=== PATIENT | male | born 1960 | race Caucasian/White ===

== ENCOUNTER 2020-09-03 08:09 | Day surgery (SDC) | payer OTHER ==
[~2020-09-03] VITALS: Ht 185.4 cm; Wt 95.3 kg
[~2020-09-03 08:09] MED LIST: ASPI325T6 PO; LIPITOR 40MG TA40 MG PO; LOPRESSOR 225 MG/TAB PO; NITROSTAT0.4 MG/TAB SL; NO HOME MEDICATIONS; PLAVIX 75MG TAB75 MG PO; TOPROL XL 25MG25 MG PO; ZESTRIL2.5 MG PO
[2020-09-03 08:39] VITALS: BP 130/79; PULSE 108; TEMP 97
[2020-09-03] MEDS ORDERED: PRINIVIL10 MG PO (08:49)
--- NOTE | 2020-09-03 08:53 | NUR ---
TO [facility] AT 0815- CALL LIGHT IN REACH
[2020-09-03 10:15] VITALS: BP 108/75; PULSE 91
[2020-09-03 10:30] VITALS: BP 106/82; PULSE 90
[2020-09-03 10:45] VITALS: BP 114/86; PULSE 88
--- NOTE | 2020-09-03 14:14 | NUR ---
PT ALERT AND ORIENTATED. DENIES PAIN, DISCOMFORT OR NAUSEA. LUNGS CLEAR, HRR, BOWEL SOUNDS AUDIBLE. PT REQUESTS WATER AND VANILLA PUDDING AND TOLERATES WELL. WILL CONTINUE TO MONITOR PROGRESS.
--- NOTE | 2020-09-03 14:19 | NUR ---
PT TOLERATING FOOD AND FLUIDS WITHOUT DIFFICULTY. IV DC'D. PT TOLERATED WELL. DENIES NAUSEA OR VOMITING. VSS. WILL MONITOR.
--- NOTE | 2020-09-03 14:21 | NUR ---
DIMISSAL INSTRUCTIONS GIVEN TO PT, PT VOICES UNDERSTANDING. DENIES QUESTIONS. DENIES PAIN, NAUSEA, VOMITING OR DISCOMFORT. PT DISCHARGED THRIUGH THE PT ENTRANCE TO FAMILY CAR, PT SISTER, KITA DRIVING.
== END 2020-09-03 10:50 | disposition home or self-care (01) ==
LOC: SDCO 08:09
DX: K62.1 Rectal polyp (principal); I25.2 Old myocardial infarction; K62.89 Other specified diseases of anus and rectum; I10 Essential (primary) hypertension; M19.90 Unspecified osteoarthritis, unspecified site; I25.10 Atherosclerotic heart disease of native coronary artery without angina pectoris; E78.00 Pure hypercholesterolemia, unspecified; E78.5 Hyperlipidemia, unspecified; K57.32 Diverticulitis of large intestine without perforation or abscess without bleeding; K92.1 Melena; Z88.5 Allergy status to narcotic agent; Z88.8 Allergy status to other drugs, medicaments and biological substances; Z79.82 Long term (current) use of aspirin; Z86.12 Personal history of poliomyelitis; Z87.891 Personal history of nicotine dependence
CPT/HCPCS: J2704; J7120

== ENCOUNTER → 2020-12-07 | Outpatient (CLI) | payer OTHER ==
[~2020-12-07] MED LIST changes: +ALDACTONE 25MG25 M1 PO; +ASPIRIN 81M81 MG/TA2 PO; +BACTRIM DS 8001 TAB PO; +CEPHALEXIN500 M1 PO; +DEMADEX 20MG20 M1 PO; +DOBUTAMINE; +ELIQUIS 5MG PO; +K-TAB10 PO; +KLOR-CON M2020 MEQ PO; +LASIX 20MG TABL20 MG PO; +LEXAPRO 10MG10 MG PO; +LIALDA 1.2 GM1.2 GM PO; +MAG-OX 400400 MG/TAB PO; +NATURE'S BLEND100 M2 PO; +PERCOCET 325 MG1 TA2 PO; +PREDNISONE10 MG PO; +PRINIVIL10 MG PO; +PROAMATINE 5MG T5 MG PO
== END ==
LOC: COL.RAD 09:27
DX: K57.30 Diverticulosis of large intestine without perforation or abscess without bleeding (principal)
CPT/HCPCS: Q9967

== ENCOUNTER 2020-12-28 02:13 | Inpatient (IN) | payer OTHER ==
[~2020-12-28] VITALS: Ht 185.4 cm; Wt 87.4 kg
[~2020-12-28 02:13] MED LIST changes: -ALDACTONE 25MG25 M1 PO; -ASPIRIN 81M81 MG/TA2 PO; -BACTRIM DS 8001 TAB PO; -CEPHALEXIN500 M1 PO; -DEMADEX 20MG20 M1 PO; -DOBUTAMINE; -ELIQUIS 5MG PO; -K-TAB10 PO; -KLOR-CON M2020 MEQ PO; -LASIX 20MG TABL20 MG PO; -LEXAPRO 10MG10 MG PO; -LIALDA 1.2 GM1.2 GM PO; -MAG-OX 400400 MG/TAB PO; -NATURE'S BLEND100 M2 PO; -PERCOCET 325 MG1 TA2 PO; -PREDNISONE10 MG PO; -PROAMATINE 5MG T5 MG PO
[2020-12-28] MEDS ORDERED: ASPIRIN 81M81 MG/TA2 PO (02:29)
[2020-12-28 02:49] LABS: BASO # 0.1 (0.0-0.2); BASO % 0.6 % (0.0-2.0); EOS # 0.7 (0.0-0.7); EOS % 4.1 % (0-4.0); GRAN # 13.5 (1.4-6.5); HEMATOCRIT 42.4 % (42.0-52.0); HEMOGLOBIN 14.2 g/dl (13.5-18.0); LYMPH # 1.8 (1.2-3.4); LYMPH % 10.2 % (20.0-51.0); MEAN CELL VOLUME 91 fl (80.0-100.0); MEAN CORPUSCULAR HEMOGLOBIN 31 pg (27.0-31.0); MEAN CORPUSCULAR HGB CONC 34 g/dl (33.0-37.0); MEAN PLATELET VOLUME 12.1 fl (7.4-10.4); MONO % 5.6 % (1.7-9.3); PLATELET COUNT 233 K/mm3 (130-400); RED BLOOD COUNT 4.66 M/mm3 (4.20-5.60); REDCELL DISTRIBUTION WIDTH-CV 12.8 % (11.5-14.5)
[2020-12-28 03:06] LABS: ALANINE AMINOTRANSFERASE 33 U/L (4-49); ALKALINE PHOSPHATASE 102 U/L (50-136); ANION GAP 9 mmol/L (7-16); AST,SGOT 25 U/L (15-37); BILIRUBIN,TOTAL 0.6 mg/dL (0.0-1.0); BLOOD UREA NITROGEN 18 mg/dL (9-20); C-REACTIVE PROTEIN < 0.5 mg/dL (0.0-0.9); CALCIUM 9.4 mg/dL (8.4-10.2); CARBON DIOXIDE 20 mmol/L (22-30); CHLORIDE 108 mmol/L (98-107); CREATININE, serum 0.83 (0.66-1.25); GLUCOSE 97 mg/dL (74-106); POTASSIUM 4.2 mmol/L (3.4-5.0); SODIUM 136 mmol/L (137-145); TOTAL PROTEIN 6.7 gm/dL (6.4-8.2)
[2020-12-28 03:07] LABS: INR 1.3 (0.8-3.0); PROTHROMBIN TIME 13.9 SECONDS (9.7-12.8)
[2020-12-28 03:23] LABS: TROPONIN-I 0.071 ng/mL (0.000-0.035)
[2020-12-28 03:56] LABS: COLLECTION METHOD CLEAN CATCH
[2020-12-28 04:02] LABS: PH 5 (5-8); SQUAMOUS EPITHELIAL 0-2 /hpf; URINE APPEARANCE Clear; URINE BACTERIA None Seen /hpf; URINE BILIRUBIN Negative (NEGATIVE); URINE BLOOD Negative (NEGATIVE); URINE COLOR Straw; URINE GLUCOSE Negative (NEGATIVE); URINE KETONE Negative (NEGATIVE); URINE LEUKOCYTE ESTERASE Negative (NEGATIVE); URINE NITRATE Negative (NEGATIVE); URINE PROTEIN(semi-quant) Negative (NEGATIVE); URINE RBC None Seen /hpf; URINE UROBILINOGEN Negative (NEGATIVE)
--- NOTE | 2020-12-28 07:59 | NUR ---
Radiology in for echo
[2020-12-28 08:00] VITALS: BP 107/66; PULSE 84; TEMP 97.5
--- NOTE | 2020-12-28 08:10 | NUR ---
Dr. Mata in to see patient.
--- NOTE | 2020-12-28 08:45 | NUR ---
Notified Dr. Mata about repeat tropoinin
--- NOTE | 2020-12-28 09:51 | NUR ---
Initial visit; Patient thanked [employer] P[employer] Operator for looking in on him and keeping him in [employer] Operator's prayers.
--- NOTE | 2020-12-28 09:54 | NUR ---
DANIAL met with the patient and his , Myesha (ph#[phone]), to discuss discharge plan. The patient lives in [place] with his and two children. He reports independence with ADLs and does not have any DME. The patient's PCP is Dr. Grisel Raymond and he receives his medications from [facility]. The patient does not have a DPOA-HC, but he was interested in obtaining a form. DANIAL provided. The patient plans to return home with his family upon discharge. No additional needs at this time. *Discharge plan: home with family*
[2020-12-28 13:07] VITALS: BP 91/65; PULSE 78; TEMP 97.7
[2020-12-28 16:30] VITALS: BP 99/69; PULSE 86; TEMP 98.2
--- NOTE | 2020-12-28 18:22 | NUR ---
Patient doing well throughout the day, spouse at bedside throughout the day. Denies pain or further needs at this time. Patient states that he would like to shower later this afternoon and will notify staff when he is ready to shower. Patient aware that he is NPO after midnight for procedure in AM. Denies further needs at this time. Will report off to night time babysitter.
--- NOTE | 2020-12-28 19:23 | NUR ---
Bedside shift report received from Marilyn. Patient currently awake in bed, requesting to have a shower tonight. No complaints of chest pain or discomfort at this time. Patient will call when ready to shower.
[2020-12-28 19:37] VITALS: BP 115/67; PULSE 84; TEMP 98
--- NOTE | 2020-12-28 20:00 | NUR ---
Assessment complete. Patient is alert and oriented with no complaints of pain. No edema is present. HR is irregular with normal rate; Lung sounds have fine crackles in bases and patient shows no signs of increased work of breathing. Bedtime lipitor order is restarted, per TARAS Mckeon approval. Patient states he no longer wishes to shower tonight. Additional comfort measures provided. Call light in reach.
[2020-12-28 23:37] VITALS: BP 112/68; PULSE 82; TEMP 97.8
[2020-12-29] VITALS (14 sets, daily range): BP systolic 88–112; BP diastolic 55–75; PULSE 42–89; TEMP 97.5–98
[2020-12-29 06:33] LABS: BASO # 0.1 (0.0-0.2); BASO % 0.7 % (0.0-2.0); EOS # 0.9 (0.0-0.7); EOS % 7.3 % (0-4.0); GRAN # 8.7 (1.4-6.5); GRAN % 67.2 % (42.2-75.2); HEMATOCRIT 45.7 % (42.0-52.0); HEMOGLOBIN 15.2 g/dl (13.5-18.0); LYMPH # 2.1 (1.2-3.4); MEAN CELL VOLUME 92 fl (80.0-100.0); MEAN CORPUSCULAR HEMOGLOBIN 31 pg (27.0-31.0); MEAN CORPUSCULAR HGB CONC 33 g/dl (33.0-37.0); MEAN PLATELET VOLUME 12.2 fl (7.4-10.4); MONO # 1.1 (0.1-0.6); MONO % 8.4 % (1.7-9.3); PLATELET COUNT 229 K/mm3 (130-400); RED BLOOD COUNT 4.99 M/mm3 (4.20-5.60); REDCELL DISTRIBUTION WIDTH-CV 12.8 % (11.5-14.5)
[2020-12-29 06:45] LABS: CREATININE, serum 0.89 (0.66-1.25); POTASSIUM 3.5 mmol/L (3.4-5.0)
[2020-12-29 07:02] LABS: TROPONIN-I 0.437 ng/mL (0.000-0.035)
[2020-12-29 07:14] LABS: INR 1.3 (0.8-3.0); PROTHROMBIN TIME 14.1 SECONDS (9.7-12.8)
[2020-12-29 07:16] LABS: PARTIAL THROMBOPLASTIN TIME 31.2 SECONDS (26.0-37.0)
--- NOTE | 2020-12-29 08:09 | NUR ---
Pt assessment complete. Pt is sitting up in bed upon entry, he is A/O x4. His breathing is even and unlabored, pt reports SOB has improved. Pt denies any chest pain at this time or overnight. POC discussed with patient who verbalizes understanding. Call light within reach.
--- NOTE | 2020-12-29 15:05 | NUR ---
Attempted to remove 5mls of air from device, bleeding visualized. Reinflated with 5mls. POC discussed with patient.
--- NOTE | 2020-12-29 15:32 | NUR ---
Pt and his had questions concerning coverage for Colonoscopy and admitting diagnosis. Reviewed case and answered all questions concerning admit. Pt admitted for New Onset of HF/Ulcerative Colitis. Pt/ voiced understanding.
--- NOTE | 2020-12-29 15:45 | NUR ---
5MLS REMOVED FROM BAND, NO BLEEDING VISUALIZED. POC DISCUSSED WITH PATIENT AND HIS , VERBALIZE UNDERSTANDING.
--- NOTE | 2020-12-29 18:42 | NUR ---
Band completely removed without bleeding. Bandaid placed to site. Arm board left in place per patient request. Pt to have bowel prep completed, discussed this with him and his .
--- NOTE | 2020-12-29 23:23 | NUR ---
Patient sitting up in bed upon enter the room. Shift assessment completed. Patient alert and oriented. Patient denies chest pain, SOB, N/V, dizziness, or headache. Right radial cardiac cath site C/D/I. Skin soft and no hematoma. All scheduled meds given per OCT. Call light within reach. Patient denies any needs at this time.
[2020-12-30 00:04] VITALS: BP 97/63; PULSE 85; TEMP 97.6
[2020-12-30 04:06] VITALS: BP 106/64; PULSE 79; TEMP 97.5
--- NOTE | 2020-12-30 05:44 | NUR ---
Patient has been on bowl prep over the night for scheduled Colonoscopy today. Patient reports bloody watery stools throughout the night. Call light within reach.
[2020-12-30 06:54] LABS: BASO # 0.1 (0.0-0.2); BASO % 0.7 % (0.0-2.0); EOS # 0.9 (0.0-0.7); EOS % 7.2 % (0-4.0); GRAN # 8.4 (1.4-6.5); GRAN % 66.9 % (42.2-75.2); HEMATOCRIT 48.3 % (42.0-52.0); HEMOGLOBIN 16.2 g/dl (13.5-18.0); LYMPH # 1.9 (1.2-3.4); LYMPH % 15.2 % (20.0-51.0); MEAN CELL VOLUME 93 fl (80.0-100.0); MEAN CORPUSCULAR HEMOGLOBIN 31 pg (27.0-31.0); MEAN CORPUSCULAR HGB CONC 34 g/dl (33.0-37.0); MEAN PLATELET VOLUME 12.2 fl (7.4-10.4); MONO # 1.2 (0.1-0.6); MONO % 9.6 % (1.7-9.3); PLATELET COUNT 251 K/mm3 (130-400); RED BLOOD COUNT 5.22 M/mm3 (4.20-5.60); REDCELL DISTRIBUTION WIDTH-CV 12.7 % (11.5-14.5)
[2020-12-30 07:06] LABS: CREATININE, serum 0.92 (0.66-1.25); MAGNESIUM 1.9 mg/dL (1.6-2.3); POTASSIUM 3.7 mmol/L (3.4-5.0)
--- NOTE | 2020-12-30 08:04 | NUR ---
Patient is going for colonoscopy at this time
--- NOTE | 2020-12-30 08:30 | NUR ---
Assessment completed, alert/oriented, vital signs stable, denies pain or discomfort, heart RRR/Distal pulses are palapble, lungs CTA/ no resp.difficulty noted, patient did bowel prep overnight and this went well/ output is now clear liquid, consent signed for colonoscopy and he is going down at thistime, present at bedside
[2020-12-30 09:11] VITALS: BP 97/73; PULSE 83
[2020-12-30] MEDS ORDERED: LIALDA 1.2 GM1.2 GM PO (11:12)
[2020-12-30] MEDS ORDERED: PREDNISONE10 MG PO (11:13)
[2020-12-30] MEDS ORDERED: LASIX 20MG TABL20 MG PO (11:18)
--- NOTE | 2020-12-30 14:13 | NUR ---
Discharge orders discussed with the patient, instructed to follow up with PCP/GI and Cardiolgoy as we have scheduled for him, discussed new meds and med changes made, scripts sent to pharmacy for him, instructed on 1.5L/day fluid restriction, instructed on low sodium diet as well, IV and tele removed, leaving with his , I escorted them out the door
== END 2020-12-30 12:00 | disposition home or self-care (01) | DRG 287 ==
LOC: COL.ER 02:13 → MEDICAL 04:02
PROVIDERS: Emergency Medicine; Internal Medicine Gastroenterology; Physician Assistant; ADMIT Student in an Organized Health Care Education/Training Program
PROC: 4A023N8 Measurement of Cardiac Sampling and Pressure, Bilateral, Percutaneous Approach (ICD-10-PCS; 2020-12-28)
PROC: B2111ZZ Fluoroscopy of Multiple Coronary Arteries using Low Osmolar Contrast (ICD-10-PCS; 2020-12-28)
PROC: 0DBN8ZX Excision of Sigmoid Colon, Via Natural or Artificial Opening Endoscopic, Diagnostic (ICD-10-PCS; 2020-12-30)
PROC: 0DBP8ZX Excision of Rectum, Via Natural or Artificial Opening Endoscopic, Diagnostic (ICD-10-PCS; principal; 2020-12-30 08:30)
DX: I11.0 Hypertensive heart disease with heart failure (principal); K51.311 Ulcerative (chronic) rectosigmoiditis with rectal bleeding; E78.5 Hyperlipidemia, unspecified; D72.829 Elevated white blood cell count, unspecified; K57.30 Diverticulosis of large intestine without perforation or abscess without bleeding; K52.9 Noninfective gastroenteritis and colitis, unspecified; I25.10 Atherosclerotic heart disease of native coronary artery without angina pectoris; I50.23 Acute on chronic systolic (congestive) heart failure; I45.81 Long QT syndrome; E16.2 Hypoglycemia, unspecified; I44.7 Left bundle-branch block, unspecified; Z95.818 Presence of other cardiac implants and grafts; Z79.82 Long term (current) use of aspirin; Z87.891 Personal history of nicotine dependence
CPT/HCPCS: 99233-AI; 99239; C1769; G0378; J1644; J1650; J1940; J2250; J2704; J3010

== ENCOUNTER 2021-02-11 06:35 | Inpatient (IN) | payer OTHER ==
[~2021-02-11] VITALS: Ht 185.4 cm; Wt 82.9 kg
[~2021-02-11 06:35] MED LIST changes: +ASPIRIN 81M81 MG/TA2 PO; +LASIX 20MG TABL20 MG PO; +LIALDA 1.2 GM1.2 GM PO; +PREDNISONE10 MG PO
[2021-02-11 07:26] LABS: HEMATOCRIT 47.7 % (42.0-52.0); HEMOGLOBIN 15.7 g/dl (13.5-18.0); MEAN CELL VOLUME 96 fl (80.0-100.0); MEAN CORPUSCULAR HEMOGLOBIN 32 pg (27.0-31.0); MEAN CORPUSCULAR HGB CONC 33 g/dl (33.0-37.0); PLATELET COUNT 297 K/mm3 (130-400); RED BLOOD COUNT 4.98 M/mm3 (4.20-5.60); REDCELL DISTRIBUTION WIDTH-CV 14.5 % (11.5-14.5)
[2021-02-11 07:40] LABS: ALBUMIN 3.7 gm/dL (3.5-5.0); BILIRUBIN,TOTAL 1.7 mg/dL (0.0-1.0); CALCIUM 9.3 mg/dL (8.4-10.2); CREATININE, serum 0.96 (0.66-1.25); POTASSIUM 3.9 mmol/L (3.4-5.0); TOTAL PROTEIN 6.5 gm/dL (6.4-8.2)
[2021-02-11 07:54] LABS: COLLECTION METHOD CLEAN CATCH
[2021-02-11 08:00] LABS: MUCOUS Present /lpf; PH 6 (5-8); SQUAMOUS EPITHELIAL None Seen /hpf; URINE APPEARANCE Clear; URINE BACTERIA None Seen /hpf; URINE BILIRUBIN Negative (NEGATIVE); URINE BLOOD Negative (NEGATIVE); URINE COLOR Yellow; URINE GLUCOSE Negative (NEGATIVE); URINE KETONE Negative (NEGATIVE); URINE LEUKOCYTE ESTERASE Negative (NEGATIVE); URINE NITRATE Negative (NEGATIVE); URINE PROTEIN(semi-quant) Negative (NEGATIVE); URINE RBC None Seen /hpf; URINE UROBILINOGEN Negative (NEGATIVE)
[2021-02-11 08:02] LABS: HYPOCHROMIA 1+; LYMPHOCYTE 19 % (20.0-51.0); NEUTROPHILS 74 % (42.0-75.2); PLATELET ESTIMATE NORMAL (NORMAL)
[2021-02-11] MEDS ORDERED: K-TAB10 PO (09:06)
--- NOTE | 2021-02-11 15:13 | NUR ---
Patient was brought up from the ED by leyla. This RN assessed the patient and completed all necessary admission documentation. Patient did c/o some left flank pain, hospitalist will be notified. Other than this, the patient has not had any other complaints. This RN did notice the patient was SOB during assessment, the patient was laying down so this RN sat the patient up to approx. 45 degrees and that seemed to alleviate the SOB. Patient felt the SOB was related to the mask and "feeling claustrophobic".
[2021-02-11 15:58] VITALS: BP 108/66; PULSE 106; TEMP 98.5
[2021-02-11] MEDS ORDERED: PREDNISONE10 MG PO (17:19)
--- NOTE | 2021-02-11 20:00 | NUR ---
Patient in bed resting. Alert and oriented x 3. Assessment complete. Edema to BLE +3, patient states his legs are looking a lot better than yesterday. Denies pain at this time. Denies further needs at this time.
[2021-02-11 20:08] VITALS: BP 101/74; PULSE 102; TEMP 97.5
--- NOTE | 2021-02-11 20:50 | NUR ---
Notified hospitalist of critial troponin.
[2021-02-11 23:03] VITALS: BP 83/61; PULSE 101; TEMP 98.5
[2021-02-11 23:16] VITALS: BP 106/74
--- NOTE | 2021-02-12 | NUR ---
Notified hospitalist of troponin.
[2021-02-12 03:06] VITALS: BP 100/66; PULSE 103; TEMP 97.8
--- NOTE | 2021-02-12 05:45 | NUR ---
Patient doing well through the night, denies pain or needs at this time. Sleeps between disturbances. Provided patient with urinal and reminded patient to use for tracking I&O. Denies additional needs at this time. Will report off to day shift.
[2021-02-12 07:01] LABS: HEMATOCRIT 45.3 % (42.0-52.0); HEMOGLOBIN 14.9 g/dl (13.5-18.0); MEAN CELL VOLUME 95 fl (80.0-100.0); MEAN CORPUSCULAR HEMOGLOBIN 31 pg (27.0-31.0); MEAN CORPUSCULAR HGB CONC 33 g/dl (33.0-37.0); PLATELET COUNT 256 K/mm3 (130-400); RED BLOOD COUNT 4.76 M/mm3 (4.20-5.60); REDCELL DISTRIBUTION WIDTH-CV 14.6 % (11.5-14.5)
[2021-02-12 07:13] LABS: CREATININE, serum 0.87 (0.66-1.25); POTASSIUM 3.5 mmol/L (3.4-5.0)
[2021-02-12 08:06] VITALS: BP 131/94; PULSE 92; TEMP 97.9
[2021-02-12 09:14] LABS: BAND 1 % (0-10); LYMPHOCYTE 16 % (20.0-51.0); NEUTROPHILS 76 % (42.0-75.2); PLATELET ESTIMATE NORMAL (NORMAL)
--- NOTE | 2021-02-12 12:18 | NUR ---
Chaplain jefferson and offered support with patient.
[2021-02-12 12:55] VITALS: BP 87/71; PULSE 95; TEMP 97.8
[2021-02-12 15:45] VITALS: BP 97/73; PULSE 99; TEMP 98.6
--- NOTE | 2021-02-12 15:49 | NUR ---
Plan is to return home with Mavis . SW met with patient about DC. Patient reports that he resides locally with and has no concerns with mobility. Patient reports that he also has two adult sons that he could call for support if needed. Patient deines having any HHS concerns. Patient reports Dr. Mane as secondary and working with specialist Dr. Vargas and Dr. Peace as PCP. Denies having any other concerns with care supports. No identified needs. Educated on services available to them. NF.
--- NOTE | 2021-02-12 20:45 | NUR ---
Patient in bed resting. Alert and oriented x 3. Assessment complete. Denies pain at this time. Edema to BLE +3. Patient and spouse state his legs are looking better. Up ambulating halls with , steady gait. Contacted hospitalist to verify administration of metoprolol and lasix with bp 90's/60's. No further needs at this time.
[2021-02-12 21:05] VITALS: BP 96/67; PULSE 110; TEMP 98.2
[2021-02-12 23:36] VITALS: BP 100/59; PULSE 69; TEMP 97
[2021-02-13 03:48] VITALS: BP 99/58; PULSE 100; TEMP 98.4
--- NOTE | 2021-02-13 05:53 | NUR ---
Patient doing well throughout the night, sleeps between disturbances. Denies pain at this time. Denies further needs at this time.
[2021-02-13 07:15] LABS: CREATININE, serum 0.77 (0.66-1.25); POTASSIUM 3.6 mmol/L (3.4-5.0)
[2021-02-13 07:43] VITALS: BP 92/61; PULSE 94; TEMP 97.7
[2021-02-13] MEDS ORDERED: ALDACTONE 25MG25 M1 PO (09:32)
[2021-02-13] MEDS ORDERED: TOPROL XL 25MG25 MG PO (09:38)
[2021-02-13] MEDS ORDERED: NITROSTAT0.4 MG/TAB SL (10:18)
--- NOTE | 2021-02-13 10:50 | NUR ---
Discharge paperwork reviewed with the patient and family at the bedside. Patient verbalized an understanding to follow doctors orders. IV removed, gauze and coban applied. Patient ambulated independently with nursing staff to the ER entrance. No further needs expressed from the patient. Personal belongings with the patient
== END 2021-02-13 10:50 | disposition home or self-care (01) | DRG 292 ==
LOC: COL.ER 06:35 → MEDICAL 08:27
PROVIDERS: Personal Emergency Response Attendant; ADMIT Internal Medicine
DX: I11.0 Hypertensive heart disease with heart failure (principal); K51.90 Ulcerative colitis, unspecified, without complications; I50.23 Acute on chronic systolic (congestive) heart failure; I42.8 Other cardiomyopathies; R74.8 Abnormal levels of other serum enzymes; D72.829 Elevated white blood cell count, unspecified; I25.10 Atherosclerotic heart disease of native coronary artery without angina pectoris; R00.0 Tachycardia, unspecified; E78.5 Hyperlipidemia, unspecified; I25.2 Old myocardial infarction; K52.9 Noninfective gastroenteritis and colitis, unspecified; K57.30 Diverticulosis of large intestine without perforation or abscess without bleeding; Z79.899 Other long term (current) drug therapy; Z86.16 Personal history of COVID-19; Z87.891 Personal history of nicotine dependence; Z95.5 Presence of coronary angioplasty implant and graft; Z79.82 Long term (current) use of aspirin; Z88.8 Allergy status to other drugs, medicaments and biological substances; Z91.19 Patient's noncompliance with other medical treatment and regimen
CPT/HCPCS: 99232-AI; 99239; G0378; J1650; J1940; J7512

== ENCOUNTER 2021-04-20 22:21 | Emergency (ER) | payer OTHER ==
[~2021-04-20] VITALS: Ht 182.9 cm; Wt 70.0 kg
[~2021-04-20 22:21] MED LIST changes: +ALDACTONE 25MG25 M1 PO; +K-TAB10 PO
[2021-04-20 22:27] VITALS: TEMP 97
[2021-04-20 22:51] LABS: BASO # 0.1 (0.0-0.2); BASO % 0.6 % (0.0-2.0); EOS # 0.2 (0.0-0.7); EOS % 0.9 % (0-4.0); GRAN # 11.7 (1.4-6.5); HEMOGLOBIN 13.6 g/dl (13.5-18.0); LYMPH # 2.5 (1.2-3.4); LYMPH % 15.6 % (20.0-51.0); MEAN CELL VOLUME 96 fl (80.0-100.0); MEAN CORPUSCULAR HEMOGLOBIN 31 pg (27.0-31.0); MEAN CORPUSCULAR HGB CONC 32 g/dl (33.0-37.0); MEAN PLATELET VOLUME 11.6 fl (7.4-10.4); MONO # 1.5 (0.1-0.6); MONO % 9.3 % (1.7-9.3); PLATELET COUNT 277 K/mm3 (130-400); RED BLOOD COUNT 4.37 M/mm3 (4.20-5.60); REDCELL DISTRIBUTION WIDTH-CV 14.9 % (11.5-14.5)
[2021-04-20 22:57] LABS: ALBUMIN 4.2 gm/dL (3.5-5.0); BILIRUBIN,TOTAL 1.3 mg/dL (0.0-1.0); CALCIUM 9.5 mg/dL (8.4-10.2); CREATININE, serum 1.1 (0.66-1.25); POTASSIUM 4.2 mmol/L (3.4-5.0); TOTAL PROTEIN 7.9 gm/dL (6.4-8.2)
[2021-04-20 23:18] LABS: TROPONIN-I 0.305 ng/mL (0.000-0.035)
[2021-04-20] MEDS ORDERED: MAG-OX 400400 MG/TAB PO (23:41)
[2021-04-20] MEDS ORDERED: LEXAPRO 10MG10 MG PO (23:41)
[2021-04-20] MEDS ORDERED: DOBUTAMINE (23:41)
[2021-04-20] MEDS ORDERED: PROAMATINE 5MG T5 MG PO (23:42)
[2021-04-20] MEDS ORDERED: NATURE'S BLEND100 M2 PO (23:42)
[2021-04-20] MEDS ORDERED: KLOR-CON M2020 MEQ PO (23:42)
[2021-04-20] MEDS ORDERED: DEMADEX 20MG20 M1 PO (23:43)
[2021-04-21] MEDS ORDERED: PERCOCET 325 MG1 TA2 PO (01:06)
[2021-04-21 01:36] VITALS: BP 95/63; PULSE 98
== END 2021-04-21 01:36 | disposition home or self-care (01) ==
LOC: COL.ER 22:21
PROVIDERS: Personal Emergency Response Attendant
DX: R07.89 Other chest pain (principal); I50.9 Heart failure, unspecified; Z95.5 Presence of coronary angioplasty implant and graft; Z95.810 Presence of automatic (implantable) cardiac defibrillator; Z87.891 Personal history of nicotine dependence; Z79.82 Long term (current) use of aspirin
CPT/HCPCS: J2270; J2405; Q9967

== ENCOUNTER → 2021-05-16 | Outpatient (CLI) | payer OTHER ==
[~2021-05-16] MED LIST changes: +BACTRIM DS 8001 TAB PO; +CEPHALEXIN500 M1 PO; +COUMADIN4 MG PO; +DEMADEX 20MG20 M1 PO; +DOBUTAMINE; +ELIQUIS 5MG PO; +KLOR-CON M2020 MEQ PO; +LEXAPRO 10MG10 MG PO; +LOVENOX 8080 MG/0.8 SQ; +MAG-OX 400400 MG/TAB PO; +NATURE'S BLEND100 M2 PO; +PACERONE200 MG; +PERCOCET 325 MG1 TA2 PO; +PHENERGAN1.25 MG/ML PEG; +PROAMATINE 5MG T5 MG PO; +PROAMATINE10 MG; +ZAROXOLYN 2.52.5 MG PO; +ZOVIRAX800 MG PO
== END ==
LOC: ZCOL.LAB 13:58
DX: Z20.822 Contact with and (suspected) exposure to COVID-19 (principal)

== ENCOUNTER 2021-07-02 20:26 | Emergency (ER) | payer OTHER ==
[~2021-07-02] VITALS: Ht 182.9 cm; Wt 70.9 kg
[~2021-07-02 20:26] MED LIST changes: -BACTRIM DS 8001 TAB PO; -CEPHALEXIN500 M1 PO; -COUMADIN4 MG PO; -ELIQUIS 5MG PO; -LOVENOX 8080 MG/0.8 SQ; -PACERONE200 MG; -PHENERGAN1.25 MG/ML PEG; -PROAMATINE10 MG; -ZAROXOLYN 2.52.5 MG PO; -ZOVIRAX800 MG PO
[2021-07-02 20:30] VITALS: TEMP 97.7
[2021-07-02 21:20] LABS: BASO % 0.3 % (0.0-2.0); EOS % 0.1 % (0-4.0); GRAN # 8.5 K/mm3 (1.4-6.5); GRAN % 70.5 % (42.2-75.2); HEMATOCRIT 41.3 % (42.0-52.0); HEMOGLOBIN 14.1 g/dl (13.5-18.0); LYMPH % 16.5 % (20.0-51.0); MEAN CELL VOLUME 93 fl (80.0-100.0); MEAN CORPUSCULAR HEMOGLOBIN 32 pg (27.0-31.0); MEAN CORPUSCULAR HGB CONC 34 g/dl (33.0-37.0); MEAN PLATELET VOLUME 11.1 fl (7.4-10.4); MONO # 1.4 K/mm3 (0.1-0.6); MONO % 11.3 % (1.7-9.3); PLATELET COUNT 173 K/mm3 (130-400); RED BLOOD COUNT 4.42 M/mm3 (4.20-5.60); REDCELL DISTRIBUTION WIDTH-CV 17.1 % (11.5-14.5)
[2021-07-02 21:37] LABS: ALBUMIN 3.7 gm/dL (3.5-5.0); BILIRUBIN,TOTAL 0.9 mg/dL (0.2-1.2); C-REACTIVE PROTEIN 0.61 mg/dL (0.00-0.50); CALCIUM 8.6 mg/dL (8.4-10.2); CREATININE, serum 0.99 mg/dL (0.72-1.25); POTASSIUM 4.5 mmol/L (3.5-4.5); TOTAL PROTEIN 6.3 gm/dL (6.2-8.1)
[2021-07-03] MEDS ORDERED: BACTRIM DS 8001 TAB PO (00:15)
[2021-07-03] MEDS ORDERED: ELIQUIS 5MG PO (00:15)
[2021-07-03] MEDS ORDERED: CEPHALEXIN500 M1 PO (00:15)
[2021-07-03 00:33] VITALS: BP 112/69; PULSE 97
== END 2021-07-03 00:33 | disposition home or self-care (01) ==
LOC: COL.ER 20:26
PROVIDERS: Nurse Practitioner
DX: L03.311 Cellulitis of abdominal wall (principal); R07.9 Chest pain, unspecified; I26.99 Other pulmonary embolism without acute cor pulmonale; I11.0 Hypertensive heart disease with heart failure; I50.9 Heart failure, unspecified; I25.10 Atherosclerotic heart disease of native coronary artery without angina pectoris; Z95.0 Presence of cardiac pacemaker; Z87.891 Personal history of nicotine dependence; Z79.899 Other long term (current) drug therapy; Z79.82 Long term (current) use of aspirin
CPT/HCPCS: J0696; Q9967

== ENCOUNTER → 2021-07-11 | Outpatient (CLI) | payer OTHER ==
[~2021-07-11] MED LIST changes: +BACTRIM DS 8001 TAB PO; +CEPHALEXIN500 M1 PO; +ELIQUIS 5MG PO
[2021-07-11 16:58] LABS: HEMOGLOBIN 14.3 g/dl (13.5-18.0); MEAN CELL VOLUME 93 fl (80.0-100.0); MEAN CORPUSCULAR HEMOGLOBIN 32 pg (27.0-31.0); MEAN CORPUSCULAR HGB CONC 34 g/dl (33.0-37.0); PLATELET COUNT 182 K/mm3 (130-400); RED BLOOD COUNT 4.52 M/mm3 (4.20-5.60); REDCELL DISTRIBUTION WIDTH-CV 17.6 % (11.5-14.5)
[2021-07-11 17:11] LABS: CALCIUM 10.1 mg/dL (8.4-10.2); CREATININE, serum 1.47 mg/dL (0.72-1.25); POTASSIUM 4.4 mmol/L (3.5-4.5)
== END ==
LOC: COL.LAB 16:08
DX: I42.8 Other cardiomyopathies (principal); E85.81 Light chain (AL) amyloidosis; I50.20 Unspecified systolic (congestive) heart failure

== ENCOUNTER → 2021-07-11 | Outpatient (CLI) | payer OTHER ==
[~2021-07-11] MED LIST changes: +COUMADIN4 MG PO; +LOVENOX 8080 MG/0.8 SQ; +PACERONE200 MG; +PHENERGAN1.25 MG/ML PEG; +PROAMATINE10 MG; +ZAROXOLYN 2.52.5 MG PO; +ZOVIRAX800 MG PO
== END ==
LOC: ZCOL.LAB 18:03
DX: I42.8 Other cardiomyopathies (principal); I50.20 Unspecified systolic (congestive) heart failure; E85.81 Light chain (AL) amyloidosis

== ENCOUNTER 2021-07-29 16:16 | Emergency (ER) | payer OTHER ==
[~2021-07-29] VITALS: Ht 182.9 cm; Wt 70.0 kg
[~2021-07-29 16:16] MED LIST changes: -COUMADIN4 MG PO; -LOVENOX 8080 MG/0.8 SQ; -PACERONE200 MG; -PHENERGAN1.25 MG/ML PEG; -PROAMATINE10 MG; -ZAROXOLYN 2.52.5 MG PO; -ZOVIRAX800 MG PO
[2021-07-29] MEDS ORDERED: ZOVIRAX800 MG PO (16:55)
[2021-07-29] MEDS ORDERED: PACERONE200 MG (16:58)
[2021-07-29] MEDS ORDERED: LOVENOX 8080 MG/0.8 SQ (17:01)
[2021-07-29] MEDS ORDERED: ZAROXOLYN 2.52.5 MG PO (17:02)
[2021-07-29] MEDS ORDERED: PROAMATINE10 MG (17:03)
[2021-07-29] MEDS ORDERED: COUMADIN4 MG PO (17:04)
[2021-07-29 17:05] LABS: HEMATOCRIT 42.7 % (42.0-52.0); HEMOGLOBIN 14.9 g/dl (13.5-18.0); MEAN CELL VOLUME 93 fl (80.0-100.0); MEAN CORPUSCULAR HEMOGLOBIN 33 pg (27-31); MEAN CORPUSCULAR HGB CONC 35 g/dl (33.0-37.0); MEAN PLATELET VOLUME 10.8 fl (7.4-10.4); PLATELET COUNT 141 K/mm3 (130-400); RED BLOOD COUNT 4.57 M/mm3 (4.20-5.60); REDCELL DISTRIBUTION WIDTH-CV 19.3 % (11.5-14.5)
[2021-07-29 17:13] LABS: INR 3.6 (0.8-3.0)
[2021-07-29 17:20] LABS: ALBUMIN 3.6 gm/dL (3.5-5.0); CALCIUM 9.1 mg/dL (8.4-10.2); CREATININE, serum 1.69 mg/dL (0.72-1.25)
[2021-07-29 17:25] LABS: POTASSIUM 6.3 mmol/L (3.5-4.5)
[2021-07-29 17:27] LABS: TROPONIN-I 0.433 ng/mL (0.00-0.033)
[2021-07-29 18:24] LABS: ANISOCYTOSIS 2+; BAND 11 % (0-10); LYMPHOCYTE 10 % (20.0-51.0); NEUTROPHILS 75 % (42.0-75.2); OVALOCYTES 1+; PLATELET ESTIMATE NORMAL (NORMAL)
[2021-07-29] MEDS ORDERED: PHENERGAN1.25 MG/ML PEG (19:56)
[2021-07-29 20:35] VITALS: BP 93/70; PULSE 93; TEMP 98.7
== END 2021-07-29 20:12 | disposition home or self-care (01) ==
LOC: COL.ER 16:16
PROVIDERS: Personal Emergency Response Attendant
DX: R11.0 Nausea (principal); I50.9 Heart failure, unspecified; Z95.9 Presence of cardiac and vascular implant and graft, unspecified; Z79.01 Long term (current) use of anticoagulants; Z79.899 Other long term (current) drug therapy
CPT/HCPCS: J1790; J1815

== ENCOUNTER → 2021-09-08 | Outpatient (CLI) | payer OTHER ==
[~2021-09-08] MED LIST changes: +COUMADIN4 MG PO; +LOVENOX 8080 MG/0.8 SQ; +PACERONE200 MG; +PHENERGAN1.25 MG/ML PEG; +PROAMATINE10 MG; +ZAROXOLYN 2.52.5 MG PO; +ZOVIRAX800 MG PO
[2021-09-08 15:11] LABS: CALCIUM 8.8 mg/dL (8.4-10.2); CREATININE, serum 1.08 mg/dL (0.72-1.25); POTASSIUM 3.5 mmol/L (3.5-4.5)
== END ==
LOC: COL.LAB 14:40
DX: I50.20 Unspecified systolic (congestive) heart failure (principal)